=== PATIENT | male | born 1970 | race African-American/Black ===

== ENCOUNTER 2021-04-20 06:22 | Emergency (ER) | payer OTHER ==
[2021-04-20 07:21] LABS: BASOPHIL 0.3 % (0-2); EOSINOPHIL 1.2 % (0-5); HCT 44.7 % (42.0-52.0); HGB 14.2 g/dl (13.2-18.0); LYMPHOCYTE 23.4 % (15-48); MCH 23.1 pg (25.0-31.0); MCHC 31.8 g/dL (32.0-36.0); MCV 72.8 fL (78.0-100.0); MONOCYTE 6.6 % (0-12); MPV 9.6 fL (6.0-9.5); NEUTROPHIL 68.2 % (41-80); NRBC 0; PLT 231 K/uL (150-400); RBC 6.14 M/uL (4.70-6.00); RDW 15.2 % (11.5-14.0)
[2021-04-20 07:31] LABS: BUN/CREAT RATIO (CALC) 8.5 RATIO; CREATININE 1.06 mg/dL (0.67-1.17); POTASSIUM 3.4 mmol/L (3.5-5.1)
[2021-04-20] MEDS ORDERED: NAPROXEN500 MG PO (08:10)
== END 2021-04-20 08:33 | disposition home or self-care (01) ==
LOC: FER 06:22
PROVIDERS: Internal Medicine
DX: M25.462 Effusion, left knee (principal); M25.862 Other specified joint disorders, left knee; I25.10 Atherosclerotic heart disease of native coronary artery without angina pectoris; F17.210 Nicotine dependence, cigarettes, uncomplicated; Z91.041 Radiographic dye allergy status; Z79.899 Other long term (current) drug therapy
CPT/HCPCS: 36415; 73564; 80048; 85025; 93971